=== PATIENT | female | born 1995 | race Caucasian/White ===

== ENCOUNTER 2018-02-27 17:04 | Emergency (ER) | payer OTHER ==
--- NOTE | 2018-02-27 18:32 | RAD REPORT ---
EXAM DESCRIPTION: CT - Stone Protocol - 02/27/2018 6:18 pm CLINICAL HISTORY: Abdominal pain. Right lower quadrant pain COMPARISON: None. TECHNIQUE: Computed axial tomography of the abdomen pelvis was obtained without oral or IV contrast. Lack of IV and oral contrast limits evaluation of solid organs, bowel, and vessels. Coronal reformat hyun images were obtained and reviewed. All CT scans are performed using dose optimization technique as appropriate and may include automated exposure control or mA/KV adjustment according to patient size. FINDINGS: A renal calculus is not seen. An ureteral calculus is not noted. A bladder calculus is not present. The liver, spleen, pancreas and adrenals appear grossly normal There is no evidence of diverticulitis. The appendix is not clearly visualized. A 3.5 centimeter cystic structure is present within the right adnexa. A small area of increased densi ty is present within this. Significant free fluid is not noted IMPRESSION: 3.5 centimeter cystic structure within the right adnexa may represent an ovarian cysts. Small area of increased density may indicate hemorrhage. Further evaluation with ultrasound is recomm ended
--- NOTE | 2018-02-27 18:49 | EDPHYS ---
Physician Documentation [facility] Name: Jhoana Garcia Age: 22 yrs Sex: Female : 1995 Arrival Date: 02/27/2018 Time: 17:06 Bed 23 Private MD: ED Physician Jamal Quijano HPI: 02/27 18:16 This 22 yrs old Female presents to ER via Wheelchair with complaints of snw Vomiting/Diarrhea, Headache. 18:16 The patient presents to the emergency department with nausea, vomiting. Onset: The snw symptoms/episode began/occurred and became persistent. Possible causes: cyclical q 3 months. The symptoms are aggravated by nothing. Associated signs and symptoms: Pertinent positives: abdominal pain. Severity of symptoms: At their worst the symptoms were moderate. The patient has experienced similar episodes in the past. The patient has not recently seen a physician. 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 - Social history:: Smoking status: Patient/guardian denies using tobacco. ROS: 18:16 Constitutional: Negative for fever, chills, and weight loss, Eyes: Negative for injury, snw pain, redness, and discharge, ENT: Negative for injury, pain, and discharge, Neck: Negative for injury, pain, and swelling, Cardiovascular: Negative for chest pain, palpitations, and edema, Respiratory: Negative for shortness of breath, cough, wheezing, and pleuritic chest pain, Back: Negative for injury and pain, : Negative for injury, bleeding, discharge, and swelling, MS/Extremity: Negative for injury and deformity, Skin: Negative for injury, rash, and discoloration, Neuro: Negative for headache, weakness, numbness, tingling, and seizure. 18:16 Abdomen/GI: Positive for abdominal pain, nausea and vomiting, abdominal cramps. Exam: 18:15 Constitutional: This is a well developed, well nourished patient who is awake, alert, snw and in no acute distress. Head/Face: Normocephalic, atraumatic. Eyes: Pupils equal round and reactive to light, extra-ocular motions intact. Lids and lashes normal. Conjunctiva and sclera are non-icteric and not injected. Cornea within normal limits. Periorbital areas with no swelling, redness, or edema. ENT: Nares patent. No nasal discharge, no septal abnormalities noted. Tympanic membranes are normal and external auditory canals are clear. Oropharynx with no redness, swelling, or masses, exudates, or evidence of obstruction, uvula midline. Mucous membranes moist. Neck: Trachea midline, no thyromegaly or masses palpated, and no cervical lymphadenopathy. Supple, full range of motion without nuchal rigidity, or vertebral point tenderness. No Meningismus. Chest/axilla: Normal chest wall appearance and motion. Nontender with no deformity. No lesions are appreciated. Cardiovascular: Regular rate and rhythm with a normal S1 and S2. No gallops, murmurs, or rubs. Normal PMI, no JVD. No pulse deficits. Respiratory: Lungs have equal breath sounds bilaterally, clear to auscultation and percussion. No rales, rhonchi or wheezes noted. No increased work of breathing, no retractions or nasal flaring. Back: No spinal tenderness. No costovertebral tenderness. Full range of motion. Skin: Warm, dry with normal turgor. Normal color with no rashes, no lesions, and no evidence of cellulitis. MS/ Extremity: Pulses equal, no cyanosis. Neurovascular intact. Full, normal range of motion. Neuro: Awake and alert, GCS 15, oriented to person, place, time, and situation. Cranial nerves II-XII grossly intact. Motor strength 5/5 in all extremities. Sensory grossly intact. Cerebellar exam normal. Normal gait. Psych: Awake, alert, with orientation to person, place and time. Behavior, mood, and affect are within normal limits. 18:15 Abdomen/GI: Inspection: abdomen appears normal, Bowel sounds: hyperactive, in the left lower quadrant, Palpation: moderate abdominal tenderness, in the right lower quadrant. Vital Signs: 17:13 BP 110 / 73; Pulse 91; Resp 16; Temp 98.9; Pulse Ox 100% on R/A; Weight 56.7 kg; Height aj 5 ft. 8 in. (172.72 cm); Pain 2/10; 18:30 BP 112 / 70; Pulse 90; Resp 16; Pulse Ox 100% on R/A; kr2 19:26 BP 108 / 73; Pulse 90; Resp 18; Pulse Ox 100% on R/A; kr2 17:13 Body Mass Index 19.01 (56.70 kg, 172.72 cm) aj MDM: 17:53 Patient medically screened. snw 18:50 Data reviewed: vital signs, nurses notes. Data interpreted: Pulse oximetry: on room air snw is 100 %. Interpretation: normal. Counseling: I had a detailed discussion with the patient and/or guardian regarding: the historical points, exam findings, and any diagnostic results supporting the discharge/admit diagnosis, lab results, radiology results, the need for outpatient follow up, to return to the emergency department if symptoms worsen or persist or if there are any questions or concerns that arise at home. Special discussion: Based on the history and exam findings, there is no indication for further emergent testing or inpatient evaluation. I discussed with the patient/guardian the need to see the OB Gyne specialist for further evaluation of the symptoms. I discussed with the patient/guardian the need to see the primary care provider for further evaluation of the symptoms. 02/27 17:39 Order name: Urine Microscopic Only snw 02/27 18:38 Order name: Urine Dipstick--Ancillary (enter results) 02/27 17:39 Order name: CT Stone Protocol; Complete Time: 18:43 snw 02/27 17:39 Order name: Urine Test (obtain specimen); Complete Time: 19:09 snw 02/27 18:38 Order name: Urine --Ancillary (enter results) 02/27 19:27 Order name: Urine Culture [facility] 02/27 17:39 Order name: Urine Dipstick-Ancillary (obtain specimen); Complete Time: 19:18 snw Administered Medications: No medications were administered Disposition: 02/27/18 18:49 Discharged to Home. Impression: Unspecified ovarian cysts. - Condition is Stable. - Discharge Instructions: Ovarian Cyst. - Prescriptions for Zofran 4 mg Oral Tablet - take 1 tablet by ORAL route every 12 hours As needed; 6 tablet. Diclofenac Sodium 75 mg Oral Tablet Sustained Release - take 1 tablet by ORAL route 2 times per day; 30 tablet. - Medication Reconciliation Form, Thank You Letter, Antibiotic Education, Prescription Opioid Use form. - Follow up: Private Physician; When: 2 - 3 days; Reason: Recheck today's complaints, Continuance of care, Re-evaluation by your physician. Follow up: Emergency Department; When: As needed; Reason: Worsening of condition. Addendum: 03/02/2018 19:04 Co-signature as Attending Physician, Jamal Quijano MD. g s Signatures: Dispatcher [employer] Mervat Dejesus, RN RN Dori Lutz, INFORMATION ASSURANCE ANALYST-C INFORMATION ASSURANCE ANALYST-Csnw Jamal Quijano MD MD Nany Chand RN RN kr2
--- NOTE | 2018-02-27 18:49 | ER ---
Nurse's Notes [facility] Name: Jhoana Garcia Age: 22 yrs Sex: Female : 1995 Arrival Date: 02/27/2018 Time: 17:06 Bed 23 Private MD: Diagnosis: Unspecified ovarian cysts Presentation: 02/27 17:10 Presenting complaint: Patient states: RLQ abdominal pain that started this afternoon. aj Patient reports that she has this same pain once every 3 months, and usually when she has her period. Reports pain has decreased. Transition of care: patient was not received from another setting of care. Onset of symptoms was February 27, 2018. Initial Sepsis Screen: Does the patient meet any 2 criteria? No. Patient's initial sepsis screen is negative. Does the patient have a suspected source of infection? No. Patient's initial sepsis screen is negative. Care prior to arrival: None. 17:10 Method Of Arrival: Wheelchair aj 17:10 Acuity: ELENA 3 aj Triage Assessment: 17:12 General: Appears in no apparent distress. uncomfortable, Behavior is calm, cooperative, aj appropriate for age. Pain: Complains of pain in right inguinal area Pain currently is 2 out of 10 on a pain scale. Neuro: Level of Consciousness is awake, alert, obeys commands, Oriented to person, place, time, situation. Respiratory: Airway is patent Respiratory effort is even, unlabored, Respiratory pattern is regular, symmetrical. GI: Reports lower abdominal pain. : Reports pain in right upper quadrant(s). Derm: Skin is intact, is healthy with good turgor, Skin is pink, warm \T\ dry. normal. 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 - Social history:: Smoking status: Patient/guardian denies using tobacco. Screenin:49 Abuse screen: Denies threats or abuse. Denies injuries from another. Nutritional ss screening: No deficits noted. Tuberculosis screening: Never had TB. Fall Risk None identified. Assessment: 17:30 General: Appears in no apparent distress. uncomfortable, well groomed, well developed, kr2 well nourished, Behavior is calm, cooperative, appropriate for age. Pain: Complains of pain in pelvis Pain does not radiate. Pain currently is 5 out of 10 on a pain scale. Quality of pain is described as aching, crampy, pressure, Pain began gradually, Is intermittent. Neuro: Level of Consciousness is awake, alert, obeys commands, Oriented to person, place, time, situation. Cardiovascular: Capillary refill < 3 seconds Patient's skin is warm and dry. Respiratory: Airway is patent Respiratory effort is even, unlabored, Respiratory pattern is regular, symmetrical. GI: Abdomen is flat, non-distended, Bowel sounds present X 4 quads. Abd is soft X 4 quads Abdomen is tender to palpation in right lower quadrant and left lower quadrant. : Urine is blood tinged, blood tinged, patient is on her period. EENT: Oral mucosa is moist. Derm: Skin is intact, is healthy with good turgor, Skin is pink, warm \T\ dry. Musculoskeletal: Circulation, motion, and sensation intact. 17:49 Reassessment: patient ambulated to restroom to give urine specimen with steady gait. ss family member remains at bedside. Vital Signs: 17:13 BP 110 / 73; Pulse 91; Resp 16; Temp 98.9; Pulse Ox 100% on R/A; Weight 56.7 kg; Height aj 5 ft. 8 in. (172.72 cm); Pain 2/10; 18:30 BP 112 / 70; Pulse 90; Resp 16; Pulse Ox 100% on R/A; kr2 19:26 BP 108 / 73; Pulse 90; Resp 18; Pulse Ox 100% on R/A; kr2 17:13 Body Mass Index 19.01 (56.70 kg, 172.72 cm) aj ED Course: 17:06 Patient arrived in ED. as 17:12 Triage completed. aj 17:13 Arm band placed on left wrist. Patient placed in waiting room, Patient notified of wait aj time. 17:30 Patient has correct armband on for positive identification. Bed in low position. Call kr2 light in reach. Side rails up X2. Adult w/ patient. Pulse ox on. NIBP on. Door closed. Head of bed elevated. 17:38 Dori Robles FNP-C is [facility]. snw 17:38 Jamal Quijano MD is Attending Physician. snw 17:46 Nany Chand, RN is Primary Nurse. kr2 17:52 Radiology exam delayed due to test not completed at this time. ga 18:15 CT completed. Patient tolerated procedure well. Patient moved to CT via wheelchair. ga Patient moved back from CT. 18:18 CT Stone Protocol In Process Unspecified. EDMS 19:26 No provider procedures requiring assistance completed. Patient did not have IV access kr2 during this emergency room visit. Administered Medications: No medications were administered Outcome: 18:49 Discharge ordered by MD. snw 19:26 Discharged to home ambulatory, with family. kr2 19:26 Condition: good 19:26 Discharge instructions given to patient, family, Instructed on discharge instructions, follow up and referral plans. medication usage, Demonstrated understanding of instructions, follow-up care, medications, Prescriptions given X 2. 19:27 Patient left the ED. kr2 Signatures: Dispatcher [employer] EDNC Mervat Tan, RN RN Dori Lutz FNP-C FNP-Mary Jo Napier Shelby, Duc Montana RN, Karey, RN RN kr2
[2018-02-27 19:26] LABS: Urine Bacteria 20-50 /HPF (<20); Urine Culture Reflex Order REFLEXED; Urine RBC TNTC /HPF (NONE SEEN)
[2018-02-27 19:27] LABS: Urine Blood 3+ (NEG); Urine Glucose NEGATIVE (NEG); Urine Protein 3+ (NEG); Urine Specific Gravity 1.025 (1.005-1.030); Urine pH 6.5 (5.0-7.0)
== END 2018-02-27 19:27 | disposition home or self-care (01) ==
LOC: ER 17:04
DX: N83.209 Unspecified ovarian cyst, unspecified side (principal)
CPT/HCPCS: 74176; 76377; 81003; 81015; 81025; 87086; 87088; 99284

== ENCOUNTER 2020-09-25 19:54 | Emergency (ER) | payer OTHER, SELFPAY ==
--- OUTSIDE RECORDS SUMMARY | 2020-09-25 19:57 | XMS REPORT | Summary of Care ---
:1995 Author Organization [facility] Address [address] [place] [address] Care Team Providers Name Role Phone Fabián Dupree MD Primary Care Provider Reason for Visit Reason Comments Refill Request Encounter Details Date Type Department Care Team Description 08/07/2020 Refill [facility] AdumAmbreen MD Refill Request Healthcare- [address] 146 [facility], [facility] [address] [place] [address] [place] [address] [phone] Allergies Active Allergy Reactions Severity Noted Date Comments Penicillin Rash Medium 12/01/2018 documented as of this encounter (statuses as of 08/08/2020) Medications Medication Sig Dispensed Refills Start Date End Date Status LOESTRIN FE (JUNEL FE Take 1 tablet by 1 Package 3 06/08/2020 Active ,) 1 mg-20 mcg mouth daily. (21)/75 mg (7) tabletIndications: Encounter for BCP ( control pills) initial prescription documented as of this encounter (statuses as of 08/08/2020) Active Problems No known active problemsdocumented as of this encounter (statuses as of 08/08/2020) Social History Tobacco Use Types Packs/Day Years Used Date Never Smoker Smokeless Tobacco: Never Used Alcohol Use Drinks/Week oz/Week Comments No Sex Assigned at Date Recorded Not on file documented as of this encounter Last Filed Vital Signs Not on filedocumented in this encounter Miscellaneous Notes Telephone Encounter - Gloria Paula MA - 08/08/2020 10:18 AM CDTCalled pharmacy to confirm if patient has refills. Pharmacy stated that she does and the refill request must have been a glitch in the system. VM left for patient informing her of the message and if she has any other questions or concerns she can give us a call back. documented in this encounter Plan of Treatment Date Type Specialty Care Team Description 09/12/2020 Office Visit Obstetrics & Gynecology Carolee Yanes MD [address] [place] [address] Dr. [place] [phone] Health Maintenance Due Date Last Done Comments VARICELLA VACCINES (1 of 2 - 1995 2-dose childhood series) HPV VACCINES (1 - 2-dose series) 2005 Depression Screening 2006 DTaP,Tdap,and Td Vaccines (1 - 2013 Tdap) PAP SMEAR 2015 INFLUENZA VACCINE (#1) 2020 PNEUMOCOCCAL 0-64 YEARS COMBINED Aged Out No longer eligible based on SERIES patient's age to complete this topic documented as of this encounter Results Not on filedocumented in this encounter Visit Diagnoses Diagnosis Encounter for BCP ( control pills) initial prescription General counseling for prescription of o ral contraceptives documented in this encounter Insurance Payer Benefit Plan / Group Subscriber ID Effective Dates Phone Address Type AETNA AETNA [facility] [id number] 2018-Present PPO documented as of this encounter
--- OUTSIDE RECORDS SUMMARY | 2020-09-25 19:57 | XMS REPORT | Summary of Care ---
:1995 Author Organization [facility] Address [address] [place] [address] Care Team Providers Name Role Phone Fabián Dupree MD Primary Care Provider Reason for Visit Reason Comments Refill Request Encounter Details Date Type Department Care Team Description 09/08/2020 Telephone [facility] Women's AdumAmbreen MD Refill Request Healthcare- [address] 146 [facility], [facility] [address] [place] [id number] [place] [address] [phone] Allergies Active Allergy Reactions Severity Noted Date Comments Penicillin Rash Medium 12/01/2018 documented as of this encounter (statuses as of 09/09/2020) Medications Medication Sig Dispensed Refills Start Date End Date Status LOESTRIN FE (JUNEL FE Take 1 tablet by 1 Package 3 06/08/2020 Active ,) 1 mg-20 mcg mouth daily. (21)/75 mg (7) tabletIndications: Encounter for BCP ( control pills) initial prescription documented as of this encounter (statuses as of 09/09/2020) Active Problems No known active problemsdocumented as of this encounter (statuses as of 09/09/2020) Social History Tobacco Use Types Packs/Day Years Used Date Never Smoker Smokeless Tobacco: Never Used Alcohol Use Drinks/Week oz/Week Comments No Sex Assigned at Date Recorded Not on file documented as of this encounter Last Filed Vital Signs Not on filedocumented in this encounter Miscellaneous Notes Telephone Encounter - Case, Jovita Dotson RN - 09/09/2020 12:[address] [facility] [place] patient has a refill remaining at the pharmacy and they will get it ready for orange picker. Patient notified. elephone Encounter - Raine Alvarez - 09/08/2020 11:55 AM CSTPatient request refill on control until WWE appointment on 09/22/20, please call and advise. documented in this encounter Plan of Treatment Date Type Specialty Care Team Description 09/22/2020 Office Visit Obstetrics & Gynecology AdCarolee bueno MD [address] [place] [address] Dr. [place], [place] [phone] Health Maintenance Due Date Last Done [...] Results Not on filedocumented in this encounter Insurance Payer Benefit Plan / Group Subscriber ID Effective Dates Phone Address Type AETNA [facility]NA [facility] [id number] 2018-Present PPO documented as of this encounter
--- OUTSIDE RECORDS SUMMARY | 2020-09-25 19:57 | XMS REPORT | Continuity of Care Document ---
:1995 Demographics Address [address] [place] [address] Mobile Phone Email Address Preferred Language Senegalese Marital Status Unknown Nondenominational Affiliation Unknown Race Unknown Additional Race(s) Unavailable White Ethnic Group Unknown Author Organization [facility] t Address [address] Best [address] [place] [address] Care Team Providers Name Role Phone Lamin FARRELL Attending Clinician Problems Condition Condition Condition Status Onset Resolution Last Treating Co mments Source Name Details Category Date Date Treatment Clinician Date Encounter Encounter Problem Active [facility] - initial initial Memoria prescripti prescripti l on of on of Outpati contracept contracept en t glenn pills [facility] Allergies, Adverse Reactions, Alerts Allergy Allergy Status Severity Reaction(s) Onset Inactive Treating Comm ents Source Name Type Date Date Clinician penicill Adverse Active Info Not [facility] in Reaction Available [facility] Medications Ordered Filled Start Stop Current Ordering Indication Dosage Frequency Signature Comments Components Source Medication Medication Date Date Medication? Clinician (SIG) Name Name Samuel Baker 2018- Yes Ismael [address] [facility] Jer-Eth Jer-Eth 6-17 Rekhi [facility] - [facility] Estrad-FE 00:00: Mem oria 00 l [facility] Diclofenac Diclofenac Yes Ismael [address] [facility] Sodium Sodium Rekhi with food [facility] - or milk Memoria l [facility] Zofran Zofran Yes Ismael [address] Rekhi [facility] Procedures This patient has no known procedures. Encounters Start End Encounter Admission Attending Care Care Encounter Source Date/Time Date/Time Type Type Clinicians Facility Department ID 2020-09-15 2020-09-15 Office MAIDA Kimble [id number] 16:04:12 16:34:12 Visit Amie Willett [id number] Janette [id number] Jessica [id number] [address] 2019-04-20 2019-04-20 Outpatient Jose Eduardo Taveras [id number] [facility] [address] 15:00:00 15:00:00 t [facility] 2018-03-30 2018-03-30 Outpatient Jose Eduardo Taveras [id number] 21:17:00 21:17:00 t [facility] - [facility] 2018-03-05 2018-03-05 Outpatient Jose Eduardo Taveras [id number] [facility] 14:45:00 14:45:00 t [facility] Results This patient has no known results.
--- OUTSIDE RECORDS SUMMARY | 2020-09-25 19:57 | XMS REPORT | Summary of Care ---
:1995 Author Organization [facility] Address [address] [place] [address] Care Team Providers Name Role Phone Fabián Dupree MD Primary Care Provider Reason for Visit Reason Comments Refill Request Encounter Details Date Type Department Care Team Description 09/04/[address] [facility] Women's AdAmbreen bueno MD Refill Request Healthcare- [address] 146 [facility] [address] [place] [address] [place] [address] [phone] Allergies Active Allergy Reactions Severity Noted Date Comments Penicillin Rash Medium 12/01/2018 documented as of this encounter (statuses as of 09/07/2020) Medications Medication Sig Dispensed Refills Start Date End Date Status LOESTRIN FE (JUNEL FE Take 1 tablet by 1 Package 3 06/08/2020 Active ,) 1 mg-20 mcg mouth daily. (21)/75 mg (7) tabletIndications: Encounter for BCP ( control pills) initial prescription documented as of this encounter (statuses as of 09/07/2020) Active Problems No known active problemsdocumented as of this encounter (statuses as of 09/07/2020) Social History Tobacco Use Types Packs/Day Years Used Date Never Smoker Smokeless Tobacco: Never Used Alcohol Use Drinks/Week oz/Week Comments No Sex Assigned at Date Recorded Not on file documented as of this encounter Last Filed Vital Signs Not on filedocumented in this encounter Miscellaneous Notes Telephone Encounter - Tracy Augustine MA - 09/07/2020 8:58 AM CSTRx refill not appropriate, patient has adequate refills to last until Oct. Patient has a WWE appointment scheduled on 09/12/20. 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 [place] [phone] Health Maintenance Due Date Last Done Comments VARICELLA VACCINES (1 of - 1995 2-dose childhood series) HPV VACCINES [...] Dates Phone Address Type AETNA AETNA [facility] [id number] 2018-Present PPO documented as of this encounter
--- OUTSIDE RECORDS SUMMARY | 2020-09-25 19:58 | XMS REPORT | Summary of Care ---
:1995 Demographics Address [address] [place] [address] Mobile Phone Home Phone Email Address Preferred Language Gibraltarian Marital Status Single Episcopal Affiliation Unknown Race White Ethnic Group Not or Author Organization [facility] Address [address] [place] [id number] Care Team Providers Name Role Phone Fabián Dupree MD Primary Care Provider Reason for Visit Reason Comments Well Woman Exam Encounter Details Date Type Department Care Team Description 09/15/2020 Office Visit [facility] Women's Amie Kimble, Well woman exam with routine gynecological exam (Primary Dx); [facility] PA-C Screening breast examination; [address] [facility] [address] [facility] c ontrol counseling; Drive, [address] Drive Surveillance of previously prescribed co ntraceptive pill [facility] [address] [id number] [place], [place] [phone] Allergies Active Allergy Reactions Severity Noted Date Comments Penicillin Rash Medium 12/01/2018 documented as of this encounter (statuses as of 09/15/2020) Medications Medication Sig Dispensed Refills Start Date End Date Status multivit-min/folic Take by 0 A ctive acid/ttc407 (ALIVE mouth. WOMEN'S GUMMY VITAMIN ORAL) LOESTRIN FE (JUNEL Take 1 1 Package 12 09/15/2020 Active FE 11/23, ,) 1 tablet by mg-20 mcg (21)/75 mouth daily. mg (7) tablet LOESTRIN FE (JUNEL Take 1 1 Package 3 06/08/2020 Discontinued FE 11/23, ,) 1 tablet by 0 (Reo rder) mg-20 mcg (21)/75 mouth daily. 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 documented as of this encounter Last Filed Vital Signs Vital Sign Reading Time Taken Comments Blood Pressure 104/69 09/15/2020 4:43 PM SOLAR ENERGY SALES SPECIALIST Pulse 77 09/15/2020 4:43 PM SOLAR ENERGY SALES SPECIALIST Temperature 36.9 C (98.5 F) 09/15/2020 4:43 PM SOLAR ENERGY SALES SPECIALIST Respiratory Rate 18 09/15/2020 4:43 PM SOLAR ENERGY SALES SPECIALIST Oxygen Saturation - - Inhaled Oxygen Concentration - - Weight 57.1 kg (125 lb 12.8 oz) 09/15/2020 4:43 PM SOLAR ENERGY SALES SPECIALIST Height 172.7 cm (5' 8") 09/15/2020 4:43 PM SOLAR ENERGY SALES SPECIALIST Body Mass Index 19.13 09/15/2020 4:43 PM SOLAR ENERGY SALES SPECIALIST documented in this encounter Patient Instructions Patient InstructionsLio Herrear - 09/15/2020 4:15 PM SOLAR ENERGY SALES SPECIALIST Patient Education Breast Health: Breast Self-Awareness What is breast self-awareness? Breast self-awareness is knowing how your breasts normally look and feel. Your breasts change as yougo through different stages of your life. So its important to learn what is normal for your breasts. Knowing about your breasts helps you spot any changes in them right away. Tell your healthcare provider about any changes. Why is breast self-awareness important? Many experts now say that women should focus on breast self-awareness instead of doing a breast self-examination (BSE). These experts include the [employer] [employer] and the [place] [employer]. Some experts even advise not teaching women to do a BSE. Thats because research hasnt shown a clear benefit to doing BSEs. Breast self-awareness is different than a BSE. It isnt about following a certain method and schedule. Its about knowing what's normal for your breasts. That way you can spot even small changes right away. If you see any changes, tell your healthcare provider. Changes to look for Call your healthcare provider if you find any changes in your breasts that worry you. These changes may be: A lump Nipple discharge other than breast milk, especially if it's bloody Swelling A change in size or shape Skin changes, such as redness, thickening, or dimpling of the skin Swollen lymph nodes in the armpit Nipple problems, such as pain or redness If you find a lump Call your provider if you find lumpiness in one breast. Also call if you feel something different inthe tissue or feel a definite lump. Sometimes lumpiness may be due to menstrual changes. But there may be reason for concern. Your provider may want to see you right away if you have: Nipple discharge that is bloody Skin changes on your breast, such as dimpling or puckering Its okay to be upset if you find a lump. Be sure to call your provider right away. Remember that most breast lumps are benign. This means they are not cancer. [email or web address] last reviewed this educational content on 03/04/202019996516-4797 [employer]. All rights reserved. This information is not intended as a substitute for professional medical care. Always follow your healthcare professional's instructions. Patient Education Clinical Breast Exam Many health organizations recommend a yearly clinical breast exam. This exam may be done by a welder fitter, family healthcare provider, nurse practitioner, nurse mushroom spawn maker, or specially trained nurse. Yearly breast exams help tomake surethat breast conditions are found early. Your healthcare providers role A healthcare professional knows the tests and follow-up care needed if a problem is found. Your clinical exam is also a great time to ask questions about breast self-exams. You can find out if yourechecking your breasts in the best way. Or you may want to ask how , breast implants, or breast reduction surgery affect the way you should check your breasts. Diagnostic tests If a clinical exam reveals a breast change, you may have other tests to find out more. These tests may include: Mammography. A low-dose X-ray of your breast tissue. Ultrasound. An imaging test that uses sound waves to create images of your breast. Biopsy. A small amount of breast tissue is removed by needle or by a cut (incision). The tissue is then checked under a microscope. Guidelines for having clinical breast exams The [employer] recommends that starting at age 29, you should have a clinical breast exam every 1 to 3 years. After age 40, have a clinical breast exam each year. If youre at higher risk for breast cancer, you may need exams more often. Risk factors for breast cancer may include: Being over 50 or postmenopausal Having a family history of breast cancer Having the BRCA1 or BRCA2 gene mutation or certain other gene mutations Having more menstrual periods due to starting menstruation early(before age 12) or having a late menopause (after age 55) Having no pregnancies Having a first after age 30 Being obese Having a history of radiation treatment to your chest area Exposure to KALLIE during your mother's Not being active Drinking too much alcohol Having dense breast tissue Taking hormone therapy after menopause Other health organizations have different recommendations. Talk with your healthcare provider about what is best for you. [email or web address] reviewed this educational content on 02/03/202019996195-2213 The [employer]. All rights reserved. This information is not intended as a substitute for professional medical care. Always follow your healthcare professional's instructions. Patient Education The Range of Pap Test Results When your Pap test is sent to the lab, the lab studies your cell samples and reports any abnormal cell changes. Your healthcare provider can discuss these changes with you. In some cases, an abnormal Pap test is due to an infection. More serious cell changes range from dysplasia to cancer. Talk to your healthcare provider about your Pap test. Normal results Cervical cells, even normal ones, are always changing. As they mature, normal squamous cells move from deeper layers within the cervix. Over time, these cells flatten and cover the surface of the cervix. Within the cervical canal, the cells are different. These glandular cells are taller and not as flat as the cells on the surface of the cervix. When a Pap test sample shows healthy cells of both types, the results are negative. Keep having Pap tests as often as directed. Abnormal results A positive Pap test result means some cells in the sample showed abnormal changes. These results aregrouped by the type of cell change and the location, or extent, of the changes. Depending on the results, you may need further testing. Inflammation. Noncancerous changes are present. They may be due to normal cell repair. Or they may be caused by an infection, such as HPV or yeast. Further testing may be needed. (Also called reactive cellular changes.) Atypical squamous cells. Test results are unclear. Cells on the surface of the cervix show changes, but their significance is not yet known. Testing for HPV and other sexually transmitted infections(STIs) may be needed. Treatment may be required. (Reported as ASC-US or ASC-H.) Atypical glandular cells. Cells lining the cervical canal show abnormal changes. Further testing is likely. You may also have treatment to destroy or remove problem cells. (Reported as AGC.) Mild dysplasia. Cells show distinct changes. More testing or HPV typing may be done. You may alsohave treatment to destroy or remove problem cells. (Reported as low-grade KING or MACIEJ 1.) Moderate to severe dysplasia. Cells show precancerous changes. Or noninvasive cancer (carcinoma in situ) may be present. Treatment to destroy or remove problem cells is likely. (Reported as high-grade KING or MACIEJ 2 or MACIEJ 3.) Cancer. Different types of cancer may be detected by your Pap test. More tests to assess the cancer's extent are likely. The type of treatment will depend on the test results and other factors, suchas age and health history. (Reported as squamous cell carcinoma, endocervical adenocarcinoma in situ, or adenocarcinoma.) [email or web address] last reviewed this educational content on 04/04/202019990572-7194 The [employer]. All rights reserved. This information is not intended as a substitute for professional medical care. Always follow your healthcare professional's instructions. Patient Education Control: The Pill control pills contain hormones that help prevent . The pills are prescribed by your healthcare provider. There are many types of control pills available. If you have side effects from one type of pill, tell your healthcare provider. He or she may be able to prescribe a pill that works better for you. rates Talk to your healthcare provider about the effectiveness of this control method. Using the pill Take one pill daily. Take it at around the same time each day. Follow your healthcare providers guidelines on when to start your first pack of pills. You mayneed to use another form of control for a week or more after you start. Know what to do if you forget to take a pill. (Consult your healthcare provider or check the package.) If you miss more than one pill, you may need to use a backup method of control for a weekor more. Pros Low rate No interruption to sex Easy to use Can help make periods more regular May lower your risk of ovarian cysts and certain cancers May decrease menstrual cramps, menstrual flow, and acne Cons Does not protect against sexually transmittedinfections (STIs) Requires taking a pill on time each day May not work as well when taken with certain other medicines (check with your pharmacist) May cause side effects such as nausea, irregular bleeding, headaches, breast tenderness, fatigue,or mood changes (these often go away within 3 months) May increase the risk of blood clots,heart attack, and stroke The pill may not be for you The pill may not be for you if: You are a smoker and over age 35 You havehigh blood pressureor gallbladder, liver, cerebrovascular or heart disease You have diabetes, migraines, blood clot in the vein or artery, lupus, depression, certain lipid disorders, or take medicines that interfere with the pill In these cases, discuss the risks with your healthcare provider. [email or web address] last reviewed this educational content on 02/03/202019992901-7397 The [employer]. All rights reserved. This information is not intended as a substitute for professional medical care. Always follow your healthcare professional's instructions. Patient Education Pap Does this test have other names? Pap smear, cervical cytology, Papanicolaou test, Pap smear test, vaginal smear technique What is this test? This test checks the cells from inside a woman's cervix for any changes that could lead to cancer. The cervix is the lower part of a woman's uterus that opens into the vagina. This test is named after Ronaldo Ruiz M.D., one of the healthcare providers whodevelopedthis technique of testing for cervical cancer. Why do I need this test? You may need this test as a screening test to look for cervical cancer or changes in cervical cells that might eventually lead to cancer. Major medical groups generally advise that women get regular Pap tests every 3 years starting at age 21. Getting a regular Pap test can be life-saving. Cervical cancer is a serious type of cancer in women. It is also one of the most treatable types when found early. If your test shows abnormal cells, your healthcare provider may be able to find and treat cervical problems right away, or stop cervical cancer before it becomes life-threatening. Pap tests can also diagnose serious infections and pelvic inflammation. What other tests might I have along with this test? You will likely have a pelvic exam along with this test. Depending on your age and other factors, your tissue samples may also be tested for human papillomavirus (HPV) infection at the same time your Pap test is done. Infection with some types of HPV puts you at risk for cervical cancer. If you have an abnormal Pap test result, you may need other tests. These may include: Colposcopy. Your cervix and vagina are looked at with a microscope called a colposcope, which magnifies any abnormal areas. Endocervical curettage. Cells are taken from the opening of your cervix with a spoon-shaped tool and looked at under a microscope. This may be done during the colposcopy. Biopsy. A small tissue sample is taken from your cervix and looked at under a microscope. This may be done during the colposcopy. What do my test results mean? Test results may vary depending on your age, gender, health history, the method used for the test, and other things. Your test results may not mean you have a problem. Ask your healthcare provider whatyour test results mean for you. Your results will either be normal, unclear, or abnormal. If you get an unclear or abnormal result, this does not mean that you have cancer. It can often means a minor cervical problem. Your healthcareprovider may do another Pap test to confirm the initial results. Or he or she may advise other testssuch as colposcopy. Occasionally a lab test has a false-positive result. This means you do not have a cervical problem even though the test result shows you do. How is this test done? This test is often done with a pelvic exam. You will lie on your back with your knees bent and your feet in stirrups, then relax and spread your legs. Your healthcare provider first checks your vagina and reproductive organs for infections and health problems. Then yourprovider uses a device called a speculum to open the vagina. The provider examines your cervix and scrapes off a few cells from inside your cervix. Some women may have slight discomfort or pressure when the speculum is inserted or when the sample of cells is taken. Does this test pose any risks? This test poses no known risks. What might affect my test results? Using vaginal lubricants, cleansers, contraceptives, or creams may mask your symptoms. Don't use vaginal douches and don't have sex for 2 days before an exam. Using these products or having sex may wash away or disguise abnormal cervical cells. How do I get ready for this test? It may seem like a good idea to wash up before having a Pap test, but this can actually erase the signs of a health problem. For accurate test results, don't have sex or use tampons, douches, vaginal creams, deodorant sprays and powders, and contraceptive foams and jellies for 2 days before your exam. Although you can have the test while you're menstruating, it is better to have the test when you're not. The ideal time to have a Pap test is at least 5 days after the end of your period. Be sure your healthcare provider knows about all medicines, herbs, vitamins, and supplements you aretaking. This includes medicines that don't need a prescription and any illegal drugs you may use. [email or web address] last reviewed this educational content on 06/04/202019996511-2824 The [employer]. All rights reserved. This information is not intended as a substitute for professional medical care. Always follow your healthcare professional's instructions. Patient Education Pap Does this test have other names? Pap smear, cervical cytology, Papanicolaou test, Pap smear test, vaginal smear technique What is this test? This test checks the cells from inside a woman's cervix for any changes that could lead to cancer. The cervix is the lower part of a woman's uterus that opens into the vagina. This test is named after Ronaldo Ruiz M.D., one of the healthcare providers whodevelopedthis technique of testing for cervical cancer. Why do I need this test? You may need this test as a screening test to look for cervical cancer or changes in cervical cells that might eventually lead to cancer. Major medical groups generally advise that women get regular Pap tests every 3 years starting at age 21. Getting a regular Pap test can be life-saving. Cervical cancer is a serious type of cancer in women. It is also one of the most treatable types when found early. If your test shows abnormal cells, your healthcare provider may be able to find and treat cervical problems right away, or stop cervical cancer before it becomes life-threatening. Pap tests can also diagnose serious infections and pelvic inflammation. What other tests might I have along with this test? You will likely have a pelvic exam along with this test. Depending on your age and other factors, your tissue samples may also be tested for human papillomavirus (HPV) infection at the same time your Pap test is done. Infection with some types of HPV puts you at risk for cervical cancer. If you have an abnormal Pap test result, you may need other tests. These may include: Colposcopy. Your cervix and vagina are looked at with a microscope called a colposcope, which magnifies any abnormal areas. Endocervical curettage. Cells are taken from the opening of your cervix with a spoon-shaped tool and looked at under a microscope. This may be done during the colposcopy. Biopsy. A small tissue sample is taken from your cervix and looked at under a microscope. This may be done during the colposcopy. What do my test results mean? Test results may vary depending on your age, gender, health history, the method used for the test, and other things. Your test results may not mean you have a problem. Ask your healthcare provider whatyour test results mean for you. Your results will either be normal, unclear, or abnormal. If you get an unclear or abnormal result, this does not mean that you have cancer. It can often means a minor cervical problem. Your healthcareprovider may do another Pap test to confirm the initial results. Or he or she may advise other testssuch as colposcopy. Occasionally a lab test has a false-positive result. This means you do not have a cervical problem even though the test result shows you do. How is this test done? This test is often done with a pelvic exam. You will lie on your back with your knees bent and your feet in stirrups, then relax and spread your legs. Your healthcare provider first checks your vagina and reproductive organs for infections and health problems. Then yourprovider uses a device called a speculum to open the vagina. The provider examines your cervix and scrapes off a few cells from inside your cervix. Some women may have slight discomfort or pressure when the speculum is inserted or when the sample of cells is taken. Does this test pose any risks? This test poses no known risks. What might affect my test results? Using vaginal lubricants, cleansers, contraceptives, or creams may mask your symptoms. Don't use vaginal douches and don't have sex for 2 days before an exam. Using these products or having sex may wash away or disguise abnormal cervical cells. How do I get ready for this test? It may seem like a good idea to wash up before having a Pap test, but this can actually erase the signs of a health problem. For accurate test results, don't have sex or use tampons, douches, vaginal creams, deodorant sprays and powders, and contraceptive foams and jellies for 2 days before your exam. Although you can have the test while you're menstruating, it is better to have the test when you're not. The ideal time to have a Pap test is at least 5 days after the end of your period. Be sure your healthcare provider knows about all medicines, herbs, vitamins, and supplements you aretaking. This includes medicines that don't need a prescription and any illegal drugs you may use. [email or web address] last reviewed this educational content on 06/04/202019999440-3061 [employer]. All rights reserved. This information is not intended as a substitute for professional medical care. Always follow your healthcare professional's instructions. R ENERGY SALES SPECIALIST documented in this encounter Progress Notes Amie Kimble PA-C - 09/15/2020 4:15 PM CST Chief complaint: Chief Complaint Patient presents with Well Woman Exam HPI Jhoana Garcia is a 25 year old female presenting for well woman exam. She is particularly concerned about WWE, first pap smear, and continuation of ocps. The patient has a Body mass index is 19.13 kg/m.. She is working on eating healthier and exercising more. The patient is not concerned about her menstrual cycles. Her cycles are regular and last about 1-3days. Her bleeding is moderate. The patient is not sexually active. She has never been. She is currently using OCPs for dysmenorrhea. . The patient denies any urinary incontinence. She denies any fecal incontinence. Her last pap smear was never. Her next pap smear is due today. She engages in breast self awareness. She denies any breast changes. She denies any family history of breast, ovarian, uterine or colon cancer. The patient feels safe at home. She denies any history of drug use. She does not smoke or drink. Her mood is good. Histories OB History Para Term AB Living 0 0 0 0 0 0 SAB TAB Ectopic Multiple Live Births 0 0 0 0 0 Past Medical History: Diagnosis Date Anxiety Family History Problem Relation Age of Onset Arthritis Mother Other - see comments Mother Other - see comments Father Cancer Paternal Grandmother Cancer Paternal Grandfather Asthma NoFHx defects NoFHx Breast Cancer NoFHx Colon Cancer NoFHx Ovarian Cancer NoFHx Uterine Cancer NoFHx Depression NoFHx Diabetes NoFHx Genetic NoFHx Heart NoFHx High cholesterol NoFHx Hypertension NoFHx Mental retardation NoFHx Neurological NoFHx Osteoporosis NoFHx Psychiatry NoFHx Family Status Relation Name Status Mo Alive psoriasis Fa Alive COPD Sis Alive PGMo PGFa Past Surgical History: Procedure Laterality Date HERNIA REPAIR Social History Socioeconomic History Marital status: Single Spouse name: Not on file Number of children: Not on file Years of education: Not on file Highest education level: Not on file Occupational History Not on file Social Needs Financial resource strain: Not on file Food insecurity Worry: Not on file Inability: Not on file Transportation needs Medical: Not on file Non-medical: Not on file Tobacco Use Smoking status: Never Smoker Smokeless tobacco: Never Used Substance and Sexual Activity Alcohol use: No Drug use: No Sexual activity: Never Partners: Male Lifestyle Physical activity Days per week: Not on file Minutes per session: Not on file Stress: Not on file Relationships Social connections Talks on phone: Not on file Gets together: Not on file Attends presybeterian service: Not on file Active member of club or organization: Not on file Attends meetings of clubs or organizations: Not on file Relationship status: Not on file Intimate partner violence Fear of current or ex partner: Not on file Emotionally abused: Not on file Physically abused: Not on file Forced sexual activity: Not on file Other Topics Concern Not on file Social History Narrative Lives alone Denies any physical or sexual abuse No pets Advent presybeterian preference Social History Substance and Sexual Activity Sexual Activity Never Partners: Male Labs none Radiology none Allergies Jhoana is allergic to penicillin. Medications Jhoana has a current medication list which includes the following prescription(s): loestrin fe and multivit-min/folic acid/aix354. Review of Systems Constitutional: Negative for appetite change, fatigue, fever, unexpected weight change, weight gain and weight loss. HENT: Negative for rhinorrhea and sore throat. Eyes: Negative for pain and itching. Respiratory: Negative for cough, chest tightness and shortness of breath. Breasts: Negative for discharge, mass and pain. Cardiovascular: Negative for chest pain, palpitations and leg swelling. Gastrointestinal: Negative for abdominal pain, constipation, diarrhea and nausea. Genitourinary: Negative for bladder incontinence, dysuria, vaginal discharge, difficulty urinating, vaginal pain and pelvic pain. Musculoskeletal: Negative for gait problem and myalgias. Skin: Negative for rash. Neurological: Negative for dizziness and headaches. Psychiatric/Behavioral: Negative for suicidal ideas. The patient is not nervous/anxious. Endocrine: Negative for hair loss, weight gain and weight loss. BP 104/69 (BP Location: Left arm, Patient Position: Sitting, BP CUFF SIZE: Adult Medium) | Pulse 77 | Temp 36.9 C (98.5 F) (Oral) | Resp 18 | Ht 5' 8" (1.727 m) | Wt 125 lb 12.8 oz (57.1 kg) | LMP 09/06/2020 | BMI 19.13 kg/m Pregravid BMI: Could not be calculated Physical Exam Vitals reviewed. Constitutional: She is oriented to person, place, and time. She appears well- developed and well-nourished. Neck: No mass. No thyromegaly palpated. No neck adenopathy. Cardiovascular: Regular rate and rhythm. Pulmonary/Chest: Normal inspiratory effort. Abdominal: Abdomen is soft. No tenderness present. No hernia palpated or inspected. Neuro/Psychiatric: She has a normal mood and affect. She is oriented to person, place, and time. Skin: Skin normal. Lymphadenopathy: No neck adenopathy present. No axillary adenopathy present. No inguinal adenopathy present. Breast: Right breast exhibits no mass, no nipple discharge and no tenderness. Left breast exhibits no mass, no nipple discharge and no tenderness. Breasts are symmetrical. Normal left breast and normalright breast External genitalia: Normal external genitalia appropriate for age. Urethral meatus: Normal urethral meatus Urethra: Normal urethra. Bladder: No tenderness. Normal bladder Vagina:Normal vagina. No lesion inspected. No abnormal vaginal discharge found. No lesions in thevagina. Cervix: Normal cervix. No lesion. No tenderness and no discharge present. Uterus: Uterus is non-tender. Normal uterus Adnexa: Right adnexa without tenderness. Left adnexa without tenderness. Normal left adnexa and normal right adnexa Anus/perineum: Normal perineum and normal anus. Assessment/Plan Well woman exam with routine gynecological exam (primary encounter diagnosis) FOLLOW-UP in 1 yr WWE Screening breast examination No complaints, self awareness. control counseling .happy with OCPs Surveillance of previously prescribed contraceptive pill Comment: Patient denies self or family history of thromboembolic disease or thrombophilia, migraine headache. I counseled patient regarding use of oral contraceptives. There are combined oral contraceptive, which has both estrogen and progestin, and there is progestin only oral contraceptive. With typical use, 9 out 100 women get in the first year and with perfect use 0.3 out of 100 womenget in the first year according to ACOG Practice Bulletin. Risks include but not limited to increase risk of thromboembolic disease, headache, weight gain, mood lability, and breast cancer. Decrease risks of ovarian cancer, colon cancer, and endometrial cancer. Oral contraceptive may decrease milk supply. Alternatives reviewed include patch, ring, Depo-Provera, Nexplanon, and IUD. Advise using condoms for STDs prevention. Return to clinic in 1 yr WWE Discussed treatment options. Reviewed patient instructions and provided printed copy. This visit did not involve counseling and coordination that comprised more than 50% of the visit time. Amie Kimble PA-C 09/15/2020 4:14 PM R ENERGY SALES SPECIALIST documented in this encounter Plan of Treatment Name Type Priority Associated Diagnoses Order S chedule PAP Smear-Liquid LAB Routine Well woman exam with licha langley Expected: 09/15/2020, Based gynecological exam Expires: 09/15/2021 Health Maintenance Due Date Last Done Comments [...] filedocumented in this encounter Visit Diagnoses Diagnosis Well woman exam with routine gynecologic al exam - Primary Routine gynecological examination Screening breast examination Other screening breast examination control counseling General counseling for initiation of oth er contraceptive measures Surveillance of previously prescribed co ntraceptive pill documented in this encounter Insurance Payer Benefit Plan / Subscriber ID Effective Dates Phone Addre ss Type Group [facility] [id number] 2020-Present PPO PREFERRED PREFERRED GENERIC documented as of this encounter
--- OUTSIDE RECORDS SUMMARY | 2020-09-25 19:58 | XMS REPORT | Summary of Care ---
:1995 Demographics Address [address] [place] [address] Mobile Phone Home Phone Email Address Preferred Language Congolese Marital Status Single Baptism Affiliation Unknown Race White Ethnic Group Not or Author Organization [facility] Address [address] [place] [id number] Care Team Providers Name Role Phone Fabián Dupree MD Primary Care Provider Reason for Visit Reason Comments Well Woman Exam Encounter Details Date Type Department Care Team Description 09/15/2020 Office Visit [facility] Women's Amie Kimble, Well woman exam with routine gynecological exam (Primary Dx); [facility] PA-C Screening breast examination; [address] [facility] [address] [facility] c ontrol counseling; Drive, [address] Drive Surveillance of previously prescribed co ntraceptive pill [facility] [address] [id number] [place], [place] [phone] Allergies Active Allergy Reactions Severity Noted Date Comments Penicillin Rash Medium 12/01/2018 documented as of this encounter (statuses as of 09/15/2020) Medications Medication Sig Dispensed Refills Start Date End Date Status multivit-min/folic Take by 0 A ctive acid/[id number] (ALIVE mouth. WOMEN'S GUMMY VITAMIN ORAL) LOESTRIN [...] with No / Unsure 09/15/2020 4:13 PM VISUAL STYLIST someone who was confirmed or suspected to have Coronavirus / COVID-19? documented as of this encounter Last Filed Vital Signs Vital Sign Reading Time Taken Comments Blood Pressure 104/69 09/15/2020 4:43 PM VISUAL STYLIST Pulse 77 09/15/2020 4:43 PM VISUAL STYLIST Temperature 36.9 C (98.5 F) 09/15/2020 4:43 PM VISUAL STYLIST Respiratory Rate 18 09/15/2020 4:43 PM VISUAL STYLIST Oxygen Saturation - - Inhaled Oxygen Concentration - - Weight 57.1 kg (125 lb 12.8 oz) 09/15/2020 4:43 PM VISUAL STYLIST Height 172.7 cm (5' 8") 09/15/2020 4:43 PM VISUAL STYLIST Body Mass Index 19.13 09/15/2020 4:43 PM VISUAL STYLIST documented in this encounter Patient Instructions Patient InstructionsLio Herrera - 09/15/2020 4:15 PM VISUAL STYLIST Patient Education Breast Health: Breast Self-Awareness What [...] breast self-examination (BSE). These experts include the [place] [employer] and the [place] [employer] of Obstetricians and Gynecologists. Some experts [...] benign. This means they are not cancer. [employer] last reviewed this educational content on 03/04/202019992837-3870 [employer]. All rights reserved. This information is not intended as a substitute for professional medical care. Always follow your healthcare professional's instructions. Patient Education Clinical Breast Exam Many health organizations recommend a yearly clinical breast exam. This exam may be done by a aircraft general repair mechanic, family healthcare provider, nurse practitioner, nurse armhole raiser lockstitch, or specially trained nurse. Yearly breast exams [...] Guidelines for having clinical breast exams The [place] College of Obstetricians and Gynecologists recommends that [...] provider about what is best for you. [employer] reviewed this educational content on 02/03/202019994227-5403 [employer]. All rights reserved. This information is not [...] carcinoma, endocervical adenocarcinoma in situ, or adenocarcinoma.) [employer] last reviewed this educational content on 04/04/202019995993-1351 [employer]. All rights reserved. This information is not [...] discuss the risks with your healthcare provider. [employer] last reviewed this educational content on 02/03/202019993602-8266 [employer]. All rights reserved. This information is not [...] and any illegal drugs you may use. [employer] last reviewed this educational content on 06/04/202019993171-1458 [employer]. All rights reserved. This information is not [...] and any illegal drugs you may use. [employer] last reviewed this educational content on 06/04/202019993091-9615 [employer]. All rights reserved. This information is not intended as a substitute for professional medical care. Always follow your healthcare professional's instructions. AL STYLIST documented in this encounter Progress Notes Amie [...] file Gets together: Not on file Attends religion service: Not on file Active member of [...] any physical or sexual abuse No pets Bahai religion preference Social History Substance and Sexual Activity Sexual Activity Never Partners: Male Labs none Radiology none Allergies Jhoana is allergic to penicillin. Medications Jhoana has a current medication list which includes the following prescription(s): loestrin fe and multivit-min/folic acid/eyz983. Review of Systems Constitutional: Negative for appetite [...] time. Amie Kimble PA-C 09/15/2020 4:14 PM AL STYLIST documented in this encounter Plan of Treatment [...] Effective Dates Phone Addre ss Type Group [facility] [id number] 2020-Present PPO PREFERRED PREFERRED GENERIC documented as of this encounter
[2020-09-25 21:43] LABS: Absolute Lymphocytes (CBC) 2.3 K/uL (0.7-4.9); Basophils % 0.5 % (0-1.3); Hematocrit 36.2 % (36.0-45.0); MPV 8.5 fL (7.6-11.3); RBC Red Blood Cell Count 4.08 M/uL (3.86-4.86)
[2020-09-25 22:06] LABS: ALT/SGPT 22 U/L (12-78); AST/SGOT 15 U/L (15-37); Albumin 3.6 g/dL (3.4-5.0); Alkaline Phosphatase 36 U/L (45-117); BUN Blood Urea Nitrogen 13 mg/dL (7-18); Bicarbonate 28 mmol/L (21-32); Bilirubin Total 0.3 mg/dL (0.2-1.0); Creatine Phosphokinase 79 U/L (26-192); Glucose Level 81 mg/dL (74-106); Protein, Total 7.6 g/dL (6.4-8.2); Sodium Level 139 mmol/L (136-145)
--- NOTE | 2020-09-25 23:27 | ER ---
Nurse's Notes [facility] Name: Jhoana Garcia Age: 25 yrs Sex: Female : 1995 Arrival Date: 09/25/2020 Time: 19:57 Bed 24 Private MD: Diagnosis: Paresthesia of skin Presentation: 09/25 20:20 Chief complaint: Patient states: Noticed around 0900 this am R calf cramping, burning ll1 after rubbing it. Right leg started getting painful at 1400. Awoke from nap at 1600, noticed burning to both wrists and forearms area. Intermittent pains down right arm now. Gait steady. No CP or SOB. Coronavirus screen: Client denies travel out of the [place] in the last 14 days. At this time, the client does not indicate any symptoms associated with coronavirus-19. Ebola Screen: Patient denies travel to an Ebola-affected area in the 21 days before illness onset. Initial Sepsis Screen: Does the patient meet any 2 criteria? No. Patient's initial sepsis screen is negative. Does the patient have a suspected source of infection? No. Patient's initial sepsis screen is negative. Risk Assessment: Do you want to hurt yourself or someone else? Patient reports no desire to harm self or others. Onset of symptoms was September 25, 2020. 20:20 Method Of Arrival: Ambulatory ll1 20:20 Acuity: ELENA 3 ll1 Historical: - Allergies: 20:24 PENICILLINS; ll1 - PMHx: 20:24 None; ll1 - PSHx: 20:24 Hernia repair; ll1 - Immunization history:: Flu vaccine is not up to date. - Social history:: Smoking status: Patient denies any tobacco usage or history of. Vital Signs: 20:20 BP 115 / 77; Pulse 71; Resp 17; Temp 99.1; Pulse Ox 100% ; Weight 56.7 kg; Height 5 ft. ll1 8 in. (172.72 cm); Pain 2/10; 20:20 Body Mass Index 19.01 (56.70 kg, 172.72 cm) ll1 ED Course: 19:57 Patient arrived in ED. bp1 20:20 Arm band placed on. ll1 20:23 Triage completed. ll1 20:46 Roel Kimball NP is PHCP. pm1 20:46 Win De Dios MD is Attending Physician. pm1 21:15 Inserted saline lock: 20 gauge in right Blood collected. dm5 22:06 Jayden Khoury, RN is Primary Nurse. rr5 22:19 CT Head Brain wo Cont In Process Unspecified. EDMS 09/26 00:05 Jayden Khoury, RN is Primary Nurse. rr5 00:05 Kathie Barron, KERRY is Primary Nurse. dm5 00:06 No provider procedures requiring assistance completed. IV discontinued, intact, dm5 bleeding controlled, No redness/swelling at site. Pressure dressing applied. Administered Medications: No medications were administered Outcome: 09/25 23:26 Discharge ordered by MD. pm1 09/26 00:07 Patient left the ED. dm5 Signatures: Dispatcher [employer] EDMT Kathie Barron, RN RN dm5 Roel Kimball, VINAY BOOK OR SCRIPT EDITOR pm1 Jayden Khoury, RN RN rr5 Temitope Rodriguez RN RN ll1 Rachel Munguia Corrections: (The following items were deleted from the chart) 09/25 20:25 20:20 Chief complaint: Patient states: Noticed around 0900 this am R calf cramping, ll1 burning after rubbing it. Right leg started getting painful at 1400. Awoke from nap at 1600, noticed burning to both wrists and forearms area. Intermittent pains down right arm now. ll1
--- NOTE | 2020-09-25 23:27 | EDPHYS ---
Physician Documentation [facility] Name: Jhoana Garcia Age: 25 yrs Sex: Female : 1995 Arrival Date: 09/25/2020 Time: 19:57 Bed 24 Private MD: ED Physician Win De Dios HPI: 09/25 21:39 This 25 yrs old Female presents to ER via Ambulatory with complaints of Arm pm1 and Leg tingling, Numbness of Arms. 21:39 The patient presents to the emergency department with paresthesias of the Right calf, pm1 right and left forearms and wrists. Onset: The symptoms/episode began/occurred this morning, at 09:00. Context: occurred at home. Associated signs and symptoms: Pertinent negatives: fever, headache, chest pain, shortness of breath. Severity of symptoms: in the emergency department the symptoms are unchanged. Current symptoms: numbness to wrists and right calf. The patient has not experienced similar symptoms in the past. The patient has not recently seen a physician. Historical: - Allergies: 20:24 PENICILLINS; ll1 - PMHx: 20:24 None; ll1 - PSHx: 20:24 Hernia repair; ll1 - Immunization history:: Flu vaccine is not up to date. - Social history:: Smoking status: Patient denies any tobacco usage or history of. ROS: 21:39 Constitutional: Negative for fever, chills, and weight loss, Neck: Negative for injury, pm1 pain, and swelling, Cardiovascular: Negative for chest pain, palpitations, and edema, Respiratory: Negative for shortness of breath, cough, wheezing, and pleuritic chest pain, Abdomen/GI: Negative for abdominal pain, nausea, vomiting, diarrhea, and constipation, Back: Negative for injury and pain, MS/Extremity: Negative for injury and deformity, Skin: Negative for injury, rash, and discoloration. 21:39 Neuro: Positive for numbness, of the right arm, left arm and right leg, Negative for dizziness, headache, tremor. Exam: 21:39 Constitutional: This is a well developed, well nourished patient who is awake, alert, pm1 and in no acute distress. Head/Face: Normocephalic, atraumatic. 21:39 Back: No spinal tenderness. No costovertebral tenderness. Full range of motion. Skin: Warm, dry with normal turgor. Normal color with no rashes, no lesions, and no evidence of cellulitis. MS/ Extremity: Pulses equal, no cyanosis. Neurovascular intact. Full, normal range of motion. 21:39 Cardiovascular: Exam negative for acute changes, Rate: normal, Rhythm: regular, Pulses: no pulse deficits are appreciated, Edema: is not appreciated. 21:39 Cardiovascular: Heart sounds: normal, normal S1and S2, no murmur, no rub, no gallop. 21:39 Respiratory: Exam negative for acute changes, respiratory distress, shortness of breath, Breath sounds: are clear throughout. 21:39 Neuro: Exam negative for acute changes, Orientation: is normal, Mentation: is normal, Motor: is normal, moves all fours. 21:39 Neuro: Sensation: is normal, no obvious gross deficits. pm1 Vital Signs: 20:20 BP 115 / 77; Pulse 71; Resp 17; Temp 99.1; Pulse Ox 100% ; Weight 56.7 kg; Height 5 ft. ll1 8 in. (172.72 cm); Pain 2/10; 20:20 Body Mass Index 19.01 (56.70 kg, 172.72 cm) ll1 MDM: 20:57 Patient medically screened. pm1 23:25 Data reviewed: vital signs. Data interpreted: Pulse oximetry: on room air is 100 %. pm1 Interpretation: normal. Counseling: I had a detailed discussion with the patient and/or guardian regarding: the historical points, exam findings, and any diagnostic results supporting the discharge/admit diagnosis, lab results, radiology results, the need for outpatient follow up, to return to the emergency department if symptoms worsen or persist or if there are any questions or concerns that arise at home. 09/25 21:08 Order name: CBC with Diff; Complete Time: 21:48 pm1 09/25 21:08 Order name: CMP; Complete Time: 22:23 pm1 09/25 21:08 Order name: TSH; Complete Time: 22:23 pm1 09/25 21:08 Order name: CPK; Complete Time: 22:23 pm1 09/25 21:08 Order name: Phosphorus; Complete Time: 22:23 pm1 09/25 23:21 Order name: Urine Dipstick--Ancillary (enter results) mw2 11/22 21:08 Order name: IV Saline Lock; Complete Time: 22:07 pm1 09/25 21:08 Order name: CT Head Brain wo Cont pm1 09/25 21:08 Order name: Urine Dipstick-Ancillary (obtain specimen); Complete Time: 23:19 pm1 09/25 21:08 Order name: Urine Test (obtain specimen); Complete Time: 23:19 pm1 09/25 23:21 Order name: Urine --Ancillary (enter results) mw2 Administered Medications: No medications were administered Disposition: 09/26 06:06 Co-signature as Attending Physician, Win De Dios MD. 7 Disposition: 09/25/20 23:26 Discharged to Home. Impression: Paresthesia of skin. - Condition is Stable. - Discharge Instructions: Paresthesia. - Medication Reconciliation Form, Thank You Letter, Antibiotic Education, Prescription Opioid Use form. - Follow up: Emergency Department; When: As needed; Reason: Worsening of condition. Follow up: Private Physician; When: 2 - 3 days; Reason: Recheck today's complaints, Continuance of care, Re-evaluation by your physician. - Problem is new. - Symptoms have improved. Signatures: Dispatcher [employer] Kathie Jones RN RN dm5 Roel Kimball NP MAGNETIZER pm1 Temitope Rodriguez RN RN ll1 Win De Dios MD MD [facility] Corrections: (The following items were deleted from the chart) 00:07 09/25 23:26 09/25/2020 23:26 Discharged to Home. Impression: Paresthesia of skin. dm5 Condition is Stable. Forms are Medication Reconciliation Form, Thank You Letter, Antibiotic Education, Prescription Opioid Use. Follow up: Emergency Department; When: As needed; Reason: Worsening of condition. Follow up: Private Physician; When: 2 - 3 days; Reason: Recheck today's complaints, Continuance of care, Re-evaluation by your physician. Problem is new. Symptoms have improved. pm1
[2020-09-26 00:14] LABS: Urine Blood NEGATIVE (NEG); Urine Glucose NEGATIVE (NEG); Urine Protein NEGATIVE (NEG); Urine Specific Gravity >1.030 (1.005-1.030); Urine pH 5.5 (5.0-7.0)
[2020-09-26 05:23] VITALS: BP 115/77; TEMP 99.1; O2SAT 100
--- NOTE | 2020-09-26 12:31 | RAD REPORT ---
EXAM DESCRIPTION: Head Brain Wo Cont CLINICAL HISTORY: 25 years Female paresthesia COMPARISON: None TECHNIQUE: Images were obtained in axial, sagittal, and coronal planes. This exam was performed according to our departmental dose-optimization program which includes use of Automated Exposure Control, adjustment of the mA and/or kV according to patient size and/or use o f iterative reconstruction technique. FINDINGS: Ventricular system appears normal. No abnormal areas of increased attenuation seen. No extra-axial fluid collections noted No evidence for skull fracture. Symmetric aeration mastoid air cells bilaterally. Unremarkable parana orin sinuses. IMPRESSION: No acute intracranial abnormality. No evidence for hemorrhage, mass lesion, or large acu te infarction. Electronically signed by: Ethel Fisher MD 09/25/2020 10:38 PM EXERCISE INSTRUCT Due to temporary technical issues with the PACS/Fluency reporting system, reports are being signed by the in house radiologist without review as a courtesy to ensure prompt reporting. The interpreting r adiologist is fully responsible for the content of the report.
== END 2020-09-26 00:07 | disposition home or self-care (01) ==
LOC: ER 19:54
DX: R20.2 Paresthesia of skin (principal); Z88.0 Allergy status to penicillin
CPT/HCPCS: 36415; 70450; 80053; 81003; 81025; 82550; 84100; 84443; 85025; 99283